=== PATIENT | female | born 1940 | race Caucasian/White ===

== ENCOUNTER 2016-09-26 14:15 | Inpatient (IN) | payer MEDICARE ==
[~2016-09-26] VITALS: Ht 154.9 cm; Wt 73.1 kg
--- NOTE | ~2016-09-26 | HEMODYNAMI ---
PATIENT:HENRY BARRERA MEDICAL RECORD: [id number] : 44 [id number] ADMISSION DATE: 09/26/16 Generatedon:09/27/201622:06 Patient name: HENRY BARRERA Patient #: [id number] SSN: : 1940 Date of study: 09/27/2016 Page: Of Hemodynamic Procedure Report Patient Data Patient Demographics Procedure consent was obtained First Name: HENRY Gender: Female Last Name: BRUCE : 1940 Middle Initial: R Age: 76 year(s) Patient #: [id number] Race: Unknown Additional ID: [id number] Contact details Address: [address] [place] [address] [place] State: [place] City: [place] Zip code: [address] Past Medical History Allergies Allergen Reaction Date Comments Reported Penicillins 09/27/2016 Other allergy 09/27/2016 Oxycodone Penicillins 09/27/2016 Sulfa drugs 09/27/2016 Admission Admission Data Admission Date: 09/26/2016 Admission Time: 16:27 Admit Source: Emergency department Room #: D.2306 Weight (lbs.): 133 Weight (kg.): 60.33 Lab Results Lab Result Date: 09/27/2016 Lab Result Time: 0:00 Biochemistry Name Units Result Min Max Creatinine mg/dl 0.6 --(*---)-- 0.6 1.3 CBC Name Units Result Min Max Hemoglobin g/dl 13.5 --(*---)-- 13.5 17.5 Procedure Procedure Types Cath Procedure Peripheral Cath Diagnostic Procedure Cath Peripheral Abd/Extremity Visceral/Mesenteric Mesenteric Arteriogram (Abd Artery) Procedure Description Procedure Date Procedure Date: 09/27/2016 Procedure Start Time: 21:03 Procedure Staff Name Function Evens Montero MD Performing Physician Julio Cesar Monk RT Scrub Sheeba Cazares RN Nurse Ameena Ponce RT Roving Tester Laboratory Ameena Ponce RT Monitor Procedure Data Cath Procedure Fluoroscopy Diagnostic fluoroscopy Total fluoroscopy Time: 8.7 time: 8.7 min min Diagnostic fluoroscopy Total fluoroscopy dose: dose: 2936 mGy 2936 mGy Contrast Material Contrast Material Type Amount (ml) Isovue 300 95 Entry Location Entry Primary Successful Side Size Upsize Upsize Entry Closure Succes sful Closure Location (Fr) 1 (Fr) 2 (Fr) Remarks Device Remarks Femoral Right 5 Fr artery Diagnostic catheters Device Type Used For End Catheter Placement Angiodynamics SOS OMNI 2 NON B 5FR 65CM catheter Procedure Medications Medication Administration Route Dosage Versed I.V. 0.5 mg Versed I.V. 0.5 mg Versed I.V. 1 mg Hemodynamics Rest HGB: 13.5 (g/dl) Heart Rate: 75 (bpm) Snapshots Pre Cath Intra NCS Post Cath Vital Signs Time Heart Resp SPO2 NIBP (mmHg) Rhythm Pain Sedation Rate (ipm) (%) Status Level (bpm) 20:46:45 57 16 Measuring SB 0 (11) 6(A) , No pain 20:47:06 69 16 97 161/99(122) NSR 0 (11) 6(A) , No pain 20:52:05 62 16 100 161/103(133) NSR 0 (11) 6(A) , No pain 20:56:15 62 16 100 158/108(131) NSR 0 (11) 6(A) , No pain 21:00:29 43 16 100 165/89(132) SB 0 (11) 6(A) , No pain 21:04:49 68 16 100 161/91(123) NSR 0 (11) 6(A) , No pain 21:09:05 61 16 100 153/117(129) NSR 0 (11) 6(A) , No pain 21:12:40 47 16 100 157/94(134) SB 0 (11) 6(A) , No pain 21:17:39 58 16 100 Measuring SB 0 (11) 6(A) , No pain 21:18:03 71 16 100 133/100(112) NSR 0 (11) 6(A) , No pain 21:23:03 60 16 100 Measuring NSR 0 (11) 6(A) , No pain 21:23:29 49 16 100 152/67(123) SB 0 (11) 6(A) , No pain 21:27:51 55 16 100 153/68(117) SB 0 (11) 6(A) , No pain 21:32:05 61 16 100 158/89(125) NSR 0 (11) 6(A) , No pain 21:36:31 58 16 100 145/59(124) SB 0 (11) 6(A) , No pain 21:40:40 58 16 100 150/101(124) SB 0 (11) 6(A) , No pain 21:44:55 63 16 100 147/80(129) NSR 0 (11) 6(A) , No pain 21:49:14 61 16 100 144/71(123) NSR 0 (11) 6(A) , No pain 21:53:28 67 16 100 143/67(123) NSR 0 (11) 6(A) , No pain 21:57:37 50 18 100 149/89(121) SB 0 (11) 6(A) , No pain 22:01:49 57 16 100 156/96(130) SB 0 (11) 6(A) , No pain 22:06:03 46 16 100 165/93(135) SB 0 (11) 6(A) , No pain Medications Time Medication Route Dose Verified Delivered Reason Notes Effectivene ss by by 21:07:03 Versed I.V. 0.5 Sheeba Sheeba for mg Lay RN Lay RN sedation 21:41:31 Versed I.V. 0.5 Sheeba Sheeba for mg Lay RN Lay RN sedation 22:02:41 Versed I.V. 1 mg Sheeba Sheeba for Lay RN Lay RN sedation Procedure Log Time Note 20:15:52 Patient Weight : 133 lbs 20:16:30 Use device set IR Diagnostic 20:16:31 Sterile Angiographic Pack opened to sterile field. 20:16:32 Bag Decanter opened to sterile field. 20:16:33 Acist Manifold opened to sterile field. 20:16:34 Acist Hand Control opened to sterile field. 20:16:35 Acist Syringe opened to sterile field. 20:17:45 Micropuncture VSI 4FR kit opened to sterile field. 20:17:46 St Gamal 5FR Sheath opened to sterile field. 20:17:47 Cook DOC .035 guide wire opened to sterile field. 20:17:56 TUBING, CONTRAST INJCTKatya HERRERA PRES opened to sterile field. 20:18:31 - 20:18:42 Julio Cesar Monk RT (R) (CV) sent for patient. Start room use. 20:43:55 Time tracking: Call back 20:44:03 Plan of Care:Hemodynamics will remain stable., Cardiac rhythm will remain stable., Comfort level will be maintained., Respiratory function will remain adequate., Patient/ family verbilizes understanding of procedure., Procedure tolerated without complication., Recovers from procedure without complications.. 20:44:12 Patient received from ICU to IR On ventilator. Tansferred to table in Supine position. 20:44:45 unable to answer assesment questions due to patient on vent. 20:44:48 Correct patient and procedure confirmed by team. 20:44:53 Signed procedure consent form obtained from guardian. 20:44:57 Vital chart was started 20:44:58 ECG and BP/O2 sat monitors applied to patient. 20:44:59 Baseline sample Acquired. 20:45:01 Full Disclosure recording started 20:45:02 - 20:45:09 H&P Date Dictated: 09/27/2016 Within 30 days and on chart.. 20:45:23 Family in waiting room. 20:45:29 Patient NPO since Breakfast. 20:45:40 Patient allergic to Penicillins 20:45:48 Patient allergic to Sulfa drugs 20:46:12 Is the patient allergic to Iodine/contrast media? No. 20:46:22 Is patient on blood thinner?Yes 20:46:26 - 20:55:09 Pre procedure: right dorsailis pedis pulse Doppler 20:55:22 Pre procedure: right posterior tibial pulse Doppler 20:55:32 Right groin area was prepped with chlora-prep and draped in sterile fashion 20:55:34 Alarms reviewed by Leanna Clarke 20:55:35 Sharps counted by scrub and verified by Giovanni 20:55:36 - 21:01:39 Physician arrived 21:01:42 --------ALL STOP TIME OUT------ ::42 Final Timeout: patient, procedure, and site verified with staff and physician. All members of the team are in agreement. 21:01:45 Right groin site verified by team. 21:02:19 Sedation plan: IV Moderate Sedation Propofol 21:02:36 Procedure started. 21:03:51 Local anesthetic to right femoral artery with Lidocaine 1% by Evens Montero MD.INITIAL ACCESS ONLY 21:07:03 Versed 0.5 mg I.V. was given by Sheeba Cazares RN; for sedation; 21:08:15 A 5 Fr sheath was inserted into the Right Femoral artery 21:08:27 A AngiodynamBombBomb SOS OMNI 2 NON B 5FR 65CM catheter was advanced over e wire and used for . 21:15:34 Edgar Sci Amplatz Super Stiff 75CM guide wire opened to sterile field. 21:15:35 DILATOR, VESSEL 5/20 opened to sterile field. 21:16:58 [employer] Software DOC .035 guide wire opened to sterile field. 21:17:35 Mar[employer] ANGLE 180L glide wire opened to sterile field. 21:22:40 [place] Sci TRANSEND STEERABLE guide wire opened to sterile field. 21:22:41 [employer] TORQUE DEVICE PLASTIC .038 opened to sterile field. 21:22:56 Angiography was performed. 21:24:45 RENEGADE STAIGHT 150CM microcatheter opened to sterile field. 21:24:45 Copilot Bleedback Control Valve opened to sterile field. 21:30:39 STOPCOCK 3-WAY LARGE BORE opened to sterile field. 21:31:41 EMBO PARTICLES [id number] MICRON opened to sterile field. 21:36:37 Concerto 2mm x 4cm coil opened to sterile field. 21:37:14 IDL Instant Loading Inspector opened to sterile field. 21:38:34 Concerto 2mm x 4cm coil opened to sterile field. 21:40:11 Concerto 2mm x 4cm coil opened to sterile field. 21:41:31 Versed 0.5 mg I.V. was given by Sheeba Cazares RN; for sedation; 21:53:31 ANGIOSEAL-[facility] PLUS 6 FR opened to sterile field. 21:56:21 Procedure ended.(Physican Out) 21:57:03 Fluoroscopy time 08.70 minutes. 21:57:19 Fluoroscopy dose: 2936 mGy 21:57:19 Flurop Dose total: 2936 21:57:26 Contrast amount:Isovue 300 95ml. 21:57:28 Sharps counted by scrub and verified by R.N. 22:02:41 Versed 1 mg I.V. was given by Sheeba Cazares RN; for sedation; 22:05:33 Procedure and supply charges have been captured, reviewed, submitted an d are correct. 22:06:18 Vital chart was stopped Device Usage Item Name Manufacture Quantity Catalog Hospital Part Current Min imal Lot# / Number Charge Number Stock Stock Serial# Code Sterile Cardinal 1 [id number] 5 Angiographic Health Pack Bag Decanter Microtek 1 2001S [id number] 53012 718922 5 Medical Inc. Acist Acist Medical 1 69865 619761 900868 510122 5 Manifold Systems Inc Acist Hand Acist Medical 1 53827 976336 176441 764810 5 Control Systems Inc Acist Syringe Acist Medical 1 84081 151481 844664 824058 20 Systems Inc Micropuncture VSI VASCULAR 1 7266V 896641 083391 [address] kit [address] Gamal [address] St Gamal 1 489918 365231 960020 5 [id number] Sheath Cook DOC .035 Cook Medical 2 E21644 350369 276458 5 [id number] guide wire [id number] TUBING, [facility] 1 [id number] 713725 505673 974608 5 CONTRAST INJCTN HI PRES Angiodynamics Angiodynamics 1 [id number] 067062 84097 427621 5 SOS OMNI 2 NON B 5FR 65CM catheter Edgar Sci Edgar 1 [id number] 384347 709875 269803 5 Amplatz Super Scientific Stiff 75CM guide wire DILATOR, [employer] 1 T33605 936996 40482 955118 5 [id number] VESSEL 20 Terumo ANGLE Terumo 1 CA6694 704119 359283 254205 5 180L glide wire Edgar Sci Edgar 1 [id number] 239483 976445 5 TRANSEND Scientific STEERABLE guide wire Terumo TORQUE Edgar 1 TD01 729525 772927 592932 5 DEVICE Scientific PLASTIC .038 RENEGADE Edgar 1 [id number] 131266 891774 5 STAIGHT 150CM Scientific microcatheter Copilot Mckeon 1 9077822 099889 648703 022420 5 Bleedback Vascular Control Valve STOPCOCK [facility] 1 Q88188 539653 8613 438841 5 3-WAY LARGE BORE EMBO Edgar 1 [id number] 779021 573773 5 PARTICLES Scientific [phone] MICRON Concerto 2mm Medtronic 3 NV-2-4HELIX 718855 382864 42919 5 x 4cm coil IDL Instant B. Zarco 1 ID-1 [id number] [id number] 333911 5 Loading Inspector ANGIOSEAL-[facility] Gamal 1 953768 457092 124755 5 7774014 PLUS 6 FR Signature Audit [place] Stage Time Signature Unsigned Intra-Procedure 09/27/2016 Ameena Ponce 10:06:15 PM RT(R) Signatures Monitor : Ameena Ponce RT Signature : Date : Time : [facility] [address] [place] [address]
--- NOTE | ~2016-09-26 | HEMODYNAMI ---
PATIENT:HENRY BARRERA MEDICAL RECORD: [id number] : 44 LOCATION[id number] ADMISSION DATE: 09/26/16 Generatedon:09/27/201611:30 Patient name: HENRY BARRERA Patient #: [id number] SSN: : 1940 Date of study: 09/27/2016 Page: Of Hemodynamic Procedure Report Patient Data Patient Demographics Procedure consent was obtained First Name: HENRY Gender: Female Last Name: BRUCE : 1940 [facility] Initial: R Age: 76 year(s) Patient #: [id number] Race: Unknown Additional ID: [id number] Contact details [address]: [address] [place] [address] [place] State: [place] City: [place] Zip code: [address] Past Medical History Allergies Allergen Reaction Date Comments Reported Penicillins 09/27/2016 Other allergy 09/27/2016 Oxycodone Admission Admission Data Admission Date: 09/26/2016 Admission Time: 16:27 Admit Source: Emergency department Room #: D.2119 Lab Results Lab Result Date: 09/27/2016 Lab Result Time: 0:00 Biochemistry Name Units Result Min Max Creatinine mg/dl 0.6 --(*---)-- 0.6 1.3 CBC Name Units Result Min Max Hemoglobin g/dl 13.5 --(*---)-- 13.5 17.5 Procedure Procedure Types Cath Procedure Diagnostic Procedure LHC LHC w/Coronaries PCI Procedure Coronary Stent Initial Miscellaneous Procedures Moderate Sedation up to 30 minutes Procedure Description Procedure Date Procedure Date: 09/27/2016 Procedure Start Time: 10:57 Procedure Staff Name Function Phan Burleson MD Performing Physician Parvez Scott RT Scrub Markie Antonio RN Nurse Rody De Jesus RT Monitor Procedure Data Cath Procedure Fluoroscopy Diagnostic fluoroscopy Total fluoroscopy Time: 6 time: 6 min min Diagnostic fluoroscopy Total fluoroscopy dose: 538 dose: 538 mGy mGy Contrast Material Contrast Material Type Amount (ml) Isovue 300 107 Entry Location Entry Primary Successful Side Size Upsize Upsize Entry Closure Hill ccessful Closure Location (Fr) 1 (Fr) 2 (Fr) Remarks Device Remarks Radial Right 6 Fr Mechanical artery Short Compression Femoral Right 5 Fr 6 Fr 7 Fr Mechanical artery Short Short Compression Estimated blood loss: 10 ml Diagnostic catheters Device Type Used For End Catheter Placement Terumo 5Fr [place] 110cm LV Angiography catheter Cordis 5Fr Pigtail LV Angiography Catheter (MP) Cordis 5Fr JL 4.0 Left Coronary Catheter (MP) Angiography Cordis 5Fr 3DRC Catheter Right Coronary (MP) Angiography Procedure Complications No complications Procedure Medications Medication Administration Route Dosage Oxygen NC 2 l/min Heparin Flush Bag added to field 2 bags (1000units/500ml NS) 0.9% NaCl I.V. 100 ml/hr Radial Cocktail added to field 1 syringe (Verapomil 2mg/Nitro 400mcg/Heparin 1500units) Demerol I.V. 25 mg Zofran I.V. 4 mg Radial Cocktail I.A. 1 syringe (Verapomil 2mg/Nitro 400mcg/Heparin 1500units) Heparin Bolus I.V. 4000 units Hemodynamics Rest HGB: 13.5 (g/dl) Heart Rate: 67 (bpm) Snapshots Pre Cath Intra NCS Post Cath Vital Signs Time Heart Resp SPO2 etCO2 UU6cisl NIBP (mmHg) Rhythm Pain Sedatio n Rate (ipm) (%) (mmHg) (mmHg) Status Level (bpm) 10:49:16 67 18 99 0 0 167/105(128) NSR 0 (11) 10(A) , No pain 10:53:34 88 18 98 0 0 166/104(135) NSR 0 (11) 10(A) , No pain 10:58:01 60 18 97 0 0 146/66(109) NSR 0 (11) 10(A) , No pain 11:02:21 67 19 94 0 0 132/67(108) NSR 0 (11) 9(A) , No pain 11:06:31 64 18 94 0 0 137/81(115) NSR 0 (11) 9(A) , No pain 11:11:30 60 18 97 0 0 Measuring NSR 0 (11) 9(A) , No pain 11:11:38 65 17 96 0 0 150/68(126) NSR 0 (11) 9(A) , No pain 11:15:54 63 18 97 0 0 153/80(121) NSR 0 (11) 9(A) , No pain 11:20:16 59 15 97 0 0 144/65(117) NSR 0 (11) 9(A) , No pain 11:24:34 66 10 97 0 0 143/67(121) NSR 0 (11) 9(A) , No pain 11:28:52 56 10 96 0 0 160/70(129) NSR 0 (11) 9(A) , No pain Medications Time Medication Route Dose Verified Delivered Reason Note s Effectiveness by by 10:45:44 Oxygen NC 2 l/min Markie Aden Per physician Paco Antonio RN RN 10:45:53 Heparin Flush added 2 bags Markie Aden used for Bag to Paco Antonio RN procedure (1000units/500ml field RN NS) 10:46:04 0.9% NaCl I.V. 100 Markie Aden Per physician ml/hr Paco Antonio RN RN 10:46:15 Radial Cocktail added 1 Markie Aden used for (Verapomil to syringe Paco Antonio RN procedure 2mg/Nitro field RN 400mcg/Heparin 1500units) 10:56:25 Demerol I.V. 25 mg Markie Aden for sedation Paco Antonio RN RN 10:56:37 Zofran I.V. 4 mg Markie Aden Per physician Paco Antonio RN RN 10:56:46 Radial Cocktail I.A. 1 Markie Lamrey for (Verapomil syringe Paco Burleson MD vasodilation 2mg/Nitro RN 400mcg/Heparin 1500units) 11:06:29 Heparin Bolus I.V. 4000 Markie Aden for units Paco Antonio RN anticoagulation corridor redevelopment manager Log Time Note 10:26:10 Diagnostic Cath Status : Elective 10:26:25 Markie Antonio RN sent for patient. Start room use. 10:26:26 Time tracking: Call back 10:26:37 Plan of Care:Hemodynamics will remain stable., Cardiac rhythm will remain stable., Comfort level will be maintained., Respiratory function will remain adequate., Patient/ family verbilizes understanding of procedure., Procedure tolerated without complication., Recovers from procedure without complications.. 10:27:59 Lab Result : Hemoglobin 13.5 g/dl 10::59 Lab Result : Creatinine 0.6 mg/dl 10:28:12 Admit Source: Emergency department 10:29:56 H&P Date Dictated: 09/26/2016 ER History on chart.. 10:33:42 Patient received from PCU to CCL 1 Alert and oriented. Tansferred to table in Supine position. 10:33:44 Warm blankets applied, and regina hugger turned on for patient comfort. 10:33:44 Correct patient and procedure confirmed by team. 10:33:45 Signed procedure consent form obtained from patient. 10:33:46 ECG and BP/O2 sat monitors applied to patient. 10:33:47 Full Disclosure recording started 10:44:27 Vital chart was started 10:45:44 Oxygen 2 l/min NC was given by Makrie Antonio RN; Per physician; 10:45:53 Heparin Flush Bag (1000units/500ml NS) 2 bags added to field was given by Markie Antonio RN; used for procedure; 10:46:04 0.9% NaCl 100 ml/hr I.V. was given by Markie Antonio RN; Per physician; 10:46:15 Radial Cocktail (Verapomil 2mg/Nitro 400mcg/Heparin 1500units) 1 syringe added to field was given by Markie Antonio RN; used for procedure; 10:46:40 Rhythm: trigeminy 10:46:44 Pre-procedure instructions explained to patient. 10:46:44 Pre-op teaching completed and patient verbalized understanding. 10:46:46 Family in patients room. 10:46:53 Patient NPO since Midnight. 10:47:02 Patient allergic to Penicillins 10:47:22 Patient allergic to Other allergyOxycodone 10:47:24 Is the patient allergic to Iodine/contrast media? No. 10:47:27 Is patient on blood thinner?Yes 10:47:29 ACC The patient was administered the following blood thiners within the last 24 hours: ACCPlavix 10:47:40 Patient diabetic? No. 10:47:44 Previous problem with sedation/anesthesia? No ? 10:47:46 Snore? Yes 10:47:47 Sleep apnea? No 10:47:48 Deviated septum? No 10:47:48 Opens mouth fully? Yes 10:47:49 Sticks out tongue? Yes 10:47:52 Airway obstruction? No ? 10:47:56 Dentures? Yes In 10:47:59 Pre procedure: right dorsailis pedis pulse 2+ Normal; easily identifiable; not easily obliterated 10:48:00 Modified Burton's test Ulnar < 7 seconds 10:48:02 Patient pain scale 0/10 ?. 10:48:07 Vital chart was stopped 10:48:08 Vital chart was started 10:48:09 IV patent on arrival in right antecubital with 0.9% NaCl at [facility]. 10:48:12 Lab results completed and on chart. 10:48:17 Right Radial & Right Groin area was prepped with chlora-prep and draped in sterile fashion 10:48:18 Alarms reviewed by R. N. 10:48:18 Sharps counted by scrub and verified by R.N. 10:48:20 Use device set Radial Dx 10:48:21 Acist Syringe opened to sterile field. 10:48:21 Medline Cath Pack opened to sterile field. 10:48:22 Bag Decanter opened to sterile field. 10:48:22 Terumo 6Fr Slender Glidesheath opened to sterile field. 10:48:22 St Gamal 260cm J .035 wire opened to sterile field. 10:48:23 Acist Hand Control opened to sterile field. 10:48:23 Acist Manifold opened to sterile field. 10:48:24 Tegaderm 4 x 4 opened to sterile field. 10:51:20 Final Timeout: patient, procedure, and site verified with staff and physician. All members of the team are in agreement. 10:51:23 Right Radial site verified by team. 10:51:27 Physical assessment completed. ASA score P 2 - A patient with mild systemic disease as per Phan Burleson MD. 10:51:30 Sedation plan: IV Moderate Sedation Versed, Fentanyl 10:52:09 Baseline sample Acquired. 10:56:25 Demerol 25 mg I.V. was given by Markie Antonio RN; for sedation; 10:56:37 Zofran 4 mg I.V. was given by Markie Antonio RN; Per physician; 10:56:46 Radial Cocktail (Verapomil 2mg/Nitro 400mcg/Heparin 1500units) 1 syringe I.A. was given by Phan Burleson MD; for vasodilation; 10:57:06 Zero performed for pressure channel P1 10:57:15 Zero performed for pressure channel P1 10:57:33 Local anesthetic to right radial artery with Lidocaine 2% by Phan Burleson MD.INITIAL ACCESS ONLY 10:57:40 A 6 Fr Short sheath was inserted into the Right Radial artery 10:57:58 A Terumo 5Fr [place] 110cm catheter was advanced over the wire and used for LV Angiography.removed, unable to advance 10:58:27 Terumo ANGLE 260cm glide wire opened to sterile field. 10:58:54 Ang [place] wire advanced. 11:00:13 Wire removed. 11:00:51 Use device set Multipack Set 11:00:57 Diagnostic Infinity 5Fr Multipack catheter opened to sterile field. 11:01:08 Terumo 5Fr [place] Sheath opened to sterile field. 11:01:15 Local anesthetic to right femoral artery with Lidocaine 2% by Phan Burleson MD.ADDITIONAL ACCESS 11:02:00 A 5 Fr sheath was inserted into the Right Femoral artery 11:02:09 A Cordis 5Fr Pigtail Catheter (MP) was advanced over the wire and used for LV Angiography. 11:02:16 LV gram done using CARDENAS 11:02:25 Injector settings: Ml/sec: 10, Volume: 20, 11:02:33 EF : 50 % 11:02:43 Catheter removed. 11:02:48 A Cordis 5Fr JL 4.0 Catheter (MP) was advanced over the wire and used for Left Coronary Angiography. 11:03:47 Mckeon Whisper J 300cm 0.014 guide wire opened to sterile field. 11:03:48 Terumo 6Fr [place] Sheath opened to sterile field. 11:03:48 [email or web address] Inflation Kit opened to sterile field. 11:03:53 Catheter removed. 11:04:12 A Cordis 5Fr 3DRC Catheter (MP) was advanced over the wire and used for Right Coronary Angiography. 11:05:09 Catheter removed. 11:05:18 Sheath upsized to a 6 Fr Short. 11:05:57 6 Fr AR 2.0 guide catheter was inserted over the wire 11:06:09 Medtronic Launcher 6Fr [place] 2.0 guide catheter opened to sterile field. 11:06:29 Heparin Bolus 4000 units I.V. was given by Markie Antnoio RN; for anticoagulation; 11:07:22 Whisper wire advanced. 11:08:45 Wire removed. unable to get back-up support 11:08:50 Guide Catheter removed. unable to get back-up support 11:09:02 The Medtronic Integrity 2.5 X 22 stent was advanced then removed because of failure to cross lesion 11:09:11 Sheath upsized to a 7 Fr Short. 11:10:01 Terumo 7Fr [place] Sheath opened to sterile field. 11:10:10 [place] Sci Choice PT Extra Support J 300cm .014 gu opened to sterile field. 11:10:10 Medtronic Launcher 7Fr [place] 2.0 SH guide catheter opened to sterile field. 11:10:40 7 Fr AR 2.0 SH guide catheter was inserted over the wire 11:11:12 Choice PT ES wire advanced. 11:11:26 Inflation number: 1 A [place] Sci [place] 2.5 X 20 balloon was prepped and advanced across the Mid RCA, then inflated to 13 PAT for 0:11 (min:sec). 11:11:42 Inflation number: 2 The [place] Sci [place] 2.5 X 20 balloon was reinflated across the Mid RCA, to 17 PAT for 0:10 (min:sec). 11:11:49 Balloon removed over the wire. 11:13:29 Inflation Number: 3 A Medtronic Integrity 2.5 X 22 stent was prepped and advanced across the Mid RCA. The stent was deployed at 17 PAT for 0:05 (min:sec). 11:13:58 Stent catheter was removed intact over wire. 11:13:59 Wire removed. 11:13:59 Guide catheter removed. 11:14:07 Sheath removed intact; hemostasis achieved with Mechanical Compression to the Right Femoral artery. 11:14:17 Cordis 7Fr Exoseal opened to sterile field. 11:14:20 Procedure ended.(Physican Out) 11:15:46 Terumo TR Band Standard opened to sterile field. 11:15:54 Fluoroscopy time 06.00 minutes. 11:16:00 Fluoroscopy dose: 538 mGy 11:16:00 Flurop Dose total: 538 11:16:08 Contrast amount:Isovue 300 107ml. 11:16:09 Sharps counted by scrub and verified by R.N. 11:16:13 TR band inflated with 12cc of air. 11:16:14 Insertion/operative site no bleeding no hematoma. 11:16:26 Post-op/insertion site Right Femoral artery dressed using a 4 x 4 and Tegaderm. 11:16:32 Post right femoral artery:stable, clean and dry 11:16:33 Post Procedure Pulses reassessed and unchanged 11:16:36 Post-procedure physical assessment completed. ASA score P 2 - A patient with mild systemic disease as per Phan Burleson MD. 11:16:38 Post procedure rhythm: unchanged. 11:16:40 Estimated blood loss: 10 ml 11:16:43 Post procedure instruction explained to patient.Patient verbalizes understanding. 11:16:43 Patient needs reinforcement of post procedure teaching. 11:16:57 Procedure type changed to Cath procedure, Diagnostic procedure, LHC, LHC w/Coronaries, PCI procedure, Coronary Stent Initial, Miscellaneous Procedures, Moderate Sedation up to 30 minutes 11:17:02 Procedure Complication : No complications 11:17:04 See physician's report for complete and final results. 11:18:22 IV Extension Set opened to sterile field. 11:22:17 Procedure and supply charges have been captured, reviewed, submitted and are correct. 11:22:33 Report given to PCU. 11:29:18 St Gamal Femstop Arch Gold opened to sterile field. 11:29:31 Post right femoral artery:hematoma 11:29:36 Femstop placed over the right femoral artery at 160 mmHg. Hemostasis achieved. 11:30:02 Sheath removed intact; hemostasis achieved with Mechanical Compression to the Right Radial artery. 11:30:07 Patient transfered to PCU with Bed. 11:30:14 End room use (Document Last) 11:30:27 Vital chart was stopped Intervention Summary Intervention Notes Time ActionType Lesion and Equipment Action# Pressure Duration Attributes Used 11:09:02 Discard Medtronic Stent Integrity 2.5 X 22 stent 11:11:26 Inflate Mid RCA [place] 1 13 00:11 balloon Sci [place] 2.5 X 20 balloon 11:11:42 Reinflate Mid RCA [place] 2 17 00:11 balloon Sci [place] 2.5 X 20 balloon 11:13:29 Place stent Mid RCA Medtronic 3 17 00:05 Integrity 2.5 X 22 stent Device Usage Item Name Manufacture Quantity Catalog Number Hospital Part Current Mini mal Lot# / Charge Number Stock Stock Serial# Code Acist Acist 1 46199 [id number] 996704 201816 20 Syringe Medical Systems Inc Medline Cardinal 1 [id number] 408738 67715 650298 5 Cath Pack Health Bag Microtek 1 2002S 088073 77752 285959 5 MessageGate Inc. Terumo 6Fr Terumo 1 [id number] 505547 852484 709463 [address] Gam[address] St Gamal 1 534113 347274 930394 949468 30 260cm J .035 wire Acist Hand Acist 1 75293 919578 485863 864198 5 Control Medical Systems Inc Acist Acist 1 64357 853516 845503 200372 5 Mandae Technologies Medical Systems Inc Tegaderm 4 3M 1 1626W 295124 601220 878308 5 x 4 Terumo 5Fr Terumo 1 405013 170728 547862 967497 5 [place] 110cm catheter Terumo Terumo 1 [id number] 905310 564591 877806 5 ANGLE 260cm glide wire Diagnostic Cardinal 1 [id number] 135064 36838 706319 30 Infinity Health 5Fr Multipack catheter Terumo 5Fr Terumo 1 [id number] 533165 713193 820096 40 [place] Sheath Cordis 5Fr Cardinal 1 758591 5 Pigtail Health Catheter (MP) Cordis 5Fr Cardinal 1 880648 5 JL 4.0 Health Catheter (MP) Mckeon Mckeon 1 [id number] 229232 268097 005377 5 Whisper J Vascular 300cm 0.014 guide wire Terumo 6Fr Terumo 1 [id number] 477098 354058 527409 40 [place] Sheath Merit Merit 1 [id number] 649185 155681 392169 15 ArchitexaohApprion Medical Inflation Kit Cordis 5Fr Cardinal 1 897460 5 3DRC Health Catheter (MP) Medtronic Medtronic 1 [id number] 378444 86299 491862 1 Launcher 6Fr [place] 2.0 guide catheter Medtronic Medtronic 1 [id number] 271194 627860 9 [id number] Integrity 2.5 X 22 stent Terumo 7Fr Terumo 1 [id number] 461562 197897 947612 5 [place] Sheath [place] Sci [place] 1 [id number] 053314 20190118 176285 5 Choice PT Scientific Extra Support J 300cm .014 gu Medtronic Medtronic 1 [id number] 132900 804797 330794 0 Launcher 7Fr [place] 2.0 SH guide catheter [place] Sci [place] 1 [id number] 719483 893217 357965 1 [id number] [place] Scientific 2.5 X 20 balloon Cordis 7Fr Cardinal 1 EX700 769035 378609 515311 5 Exoseal Health Terumo TR Terumo 1 [id number] 969542 268452 864222 40 Band Standard IV Hospira 1 25638-17 954130 44278 404[address] St Gamal 1 Q58478 642686 199728 684127 5 Femstop Arch Gold Signature Audit [place] Stage Time Signature Unsigned Intra-Procedure 09/27/2016 Rody 11:30:24 AM Counts RT(R) Signatures Monitor : Rody Signature : Counts RT Date : Time : [facility] [address] [place] [address]
[2016-09-26 15:12] LABS: BASOPHILS 0.2 % (0.0-2.0); EOSINOPHILS 1.3 % (0-7); HEMATOCRIT 40.8 % (36.0-48.0); HEMOGLOBIN 13.5 g/dL (12-16); IMMATURE GRANULOCYTES 0.2 % (0-5); LYMPHOCYTES 46.6 % (15-50); MCHC 33.1 g/dL (31.0-37.0); MCV 93.8 fL (80.0-100.0); MEAN PLATELET VOLUME 11.6 fL (7.4-10.4); MONOCYTES 9.8 % (2-11); NEUTROPHILS 41.9 % (40-80); PLATELET COUNT 135 10x3/uL (130-400); RBC 4.35 10x6/uL (4.00-5.40); RDW 13.4 % (11.5-14.5); WBC 5.3 10x3/uL (4.8-10.8)
[2016-09-26 15:21] LABS: ALBUMIN 3.5 g/dL (3.4-5.0); ALKALINE PHOSPHATASE 84 U/L (46-116); ALT (SGPT) 18 U/L (10-68); CALC OSMOLALITY 281 mosm/kg (275-300); CALCIUM 9.1 mg/dL (8.5-10.1); CARBON DIOXIDE 29.1 mmol/L (21.0-32.0); CHLORIDE - SERUM 104 mmol/L (98-107); CREATININE - SERUM 0.6 mg/dL (0.6-1.3); GLUCOSE 92 mg/dL (74-106); POTASSIUM - SERUM 4.2 mmol/L (3.5-5.1); PROTEIN - SERUM 6.7 g/dL (6.4-8.2); SODIUM 142 mmol/L (136-145); UREA NITROGEN 10 mg/dL (7-18); eGFR NON AFRICAN AMERICAN > 90 mL/min (90-120)
[2016-09-26 15:30] LABS: CHOL - HDL RATIO 2.5 ratio (2.3-4.1); CHOLESTEROL, TOTAL 116 mg/dL (0-200); CKMB 1.2 U/L (0.0-3.6); CREATINE KINASE 72 UL (21-215); HDL CHOLESTEROL 47 mg/dL (32-96); LDL CHOLESTEROL 34 mg/dL (0-100); LDL-HDL RATIO 0.7 ratio (1.5-3.5); TRIGLYCERIDE 175 mg/dL (30-200); TROPONIN-I 0.041 ng/mL (0.000-0.060)
[2016-09-26 16:36] LABS: APPEARANCE CLEAR (CLEAR); BILIRUBIN NEGATIVE (NEGATIVE); COLOR YELLOW (YELLOW); GLUCOSE NEGATIVE (NEGATIVE); KETONE NEGATIVE (NEGATIVE); LEUKOCYTE ESTERASE NEGATIVE (NEGATIVE); NITRITE NEGATIVE (NEGATIVE); PROTEIN NEGATIVE (NEGATIVE); UROBILINOGEN NORMAL (NORMAL)
--- NOTE | 2016-09-26 18:35 | NUR ---
TRANSFER FROM ER BY W/C. SIRENAINTED TO ROOM. CALL LIGHT IN REACH. WILL CONT. PLAN OF CARE.
--- NOTE | 2016-09-26 19:00 | NUR ---
RECEIVED REPORT AND ASSUMED PT CARE FROM DAY SHIFT NURSE @ THIS TIME.
[2016-09-26 20:00] VITALS: BP 159/65
[2016-09-26] MEDS ORDERED: LIPITOR40 MG PO (20:04)
[2016-09-26] MEDS ORDERED: VOLTAREN100 GM TOPICAL (20:04)
[2016-09-26] MEDS ORDERED: COZAAR50 MG PO (20:04)
[2016-09-26] MEDS ORDERED: BETAPACE 80 MG80 MG PO (20:05)
[2016-09-26] MEDS ORDERED: PEPCID40 MG PO (20:05)
[2016-09-26] MEDS ORDERED: CARAFATE1 G PO (20:05)
[2016-09-26] MEDS ORDERED: PLAVIX75 MG PO (20:06)
[2016-09-26] MEDS ORDERED: ZOVIRAX400 MG PO (20:07)
[2016-09-26] MEDS ORDERED: BAYER CHEWABLE81 MG PO (20:26)
[2016-09-26] MEDS ORDERED: TUMS500 MG PO (20:27)
[2016-09-26] MEDS ORDERED: CYCLOBENZAPRINE10 MG PO (20:28)
[2016-09-26] MEDS ORDERED: VITAMIN D31000 UNIT PO (20:28)
[2016-09-26] MEDS ORDERED: COLACE100 MG PO (20:29)
[2016-09-26] MEDS ORDERED: OMEGA 3 FISH OI1 CAP PO (20:29)
[2016-09-26] MEDS ORDERED: NITROSTAT0.4 MG SL (20:29)
[2016-09-26] MEDS ORDERED: ULTRAM50 MG PO (20:30)
[2016-09-26 20:31] VITALS: BMI 25.3
[2016-09-27] VITALS (20 sets, daily range): BP systolic 88–163; BP diastolic 45–99
[2016-09-27 10:06] LABS: BASOPHILS 0.3 % (0.0-2.0); EOSINOPHILS 2.3 % (0-7); HEMATOCRIT 37.9 % (36.0-48.0); HEMOGLOBIN 12.5 g/dL (12-16); LYMPHOCYTES 51.3 % (15-50); MCH 31.3 pg (26.0-34.0); MCV 94.8 fL (80.0-100.0); MEAN PLATELET VOLUME 11.7 fL (7.4-10.4); MONOCYTES 11.7 % (2-11); NEUTROPHILS 34.4 % (40-80); PLATELET COUNT 126 10x3/uL (130-400); RDW 13.4 % (11.5-14.5); WBC 3.9 10x3/uL (4.8-10.8)
[2016-09-27 10:22] LABS: CALC OSMOLALITY 281 mosm/kg (275-300); CALCIUM 8.1 mg/dL (8.5-10.1); CARBON DIOXIDE 24.9 mmol/L (21.0-32.0); CHLORIDE - SERUM 107 mmol/L (98-107); CREATININE - SERUM 0.7 mg/dL (0.6-1.3); GLUCOSE 119 mg/dL (74-106); POTASSIUM - SERUM 3.7 mmol/L (3.5-5.1); SODIUM 142 mmol/L (136-145); TROPONIN-I 0.059 ng/mL (0.000-0.060); eGFR NON AFRICAN AMERICAN 87 mL/min (90-120)
--- NOTE | 2016-09-27 10:30 | NUR ---
PT TO NATIONAL RECRUITER VIA BED IN STABLE CONDITION
[2016-09-27 10:36] LABS: UREA NITROGEN 7 mg/dL (7-18)
--- NOTE | 2016-09-27 11:39 | NUR ---
RECEIVED PT BACK FROM PREPARATION SUPERVISOR FREEZING IN STABLE CONDITION TR BAND INTACT TO RT WRIST BRUISING NOTED LUST PROXIMAL TO BAND FEMSTOP INTACT TO RT GROIN NO SIGNS OF BLEEDING NOTED WILL CONTINUE TO MONITOR
--- NOTE | 2016-09-27 16:21 | NUR ---
RECEIVED NEW ORDERS AND INITIATED
[2016-09-27 16:58] LABS: BASOPHILS 0.2 % (0.0-2.0); EOSINOPHILS 1.6 % (0-7); HEMATOCRIT 33.1 % (36.0-48.0); HEMOGLOBIN 10.8 g/dL (12-16); IMMATURE GRANULOCYTES 0.2 % (0-5); LYMPHOCYTES 39.8 % (15-50); MCH 31.1 pg (26.0-34.0); MCHC 32.6 g/dL (31.0-37.0); MCV 95.4 fL (80.0-100.0); MEAN PLATELET VOLUME 11.4 fL (7.4-10.4); MONOCYTES 7.2 % (2-11); PLATELET COUNT 119 10x3/uL (130-400); RBC 3.47 10x6/uL (4.00-5.40); RDW 13.6 % (11.5-14.5); WBC 6.4 10x3/uL (4.8-10.8)
--- NOTE | 2016-09-27 17:00 | NUR ---
RAPID RESPONSE CALLED SEE RAPID RESPONSE REPORT SHEET
[2016-09-27 17:06] LABS: APTT 40.8 SECONDS (22.8-39.4); INR 1.15 (0.85-1.17); PROTIME 14.6 SECONDS (11.6-15.0)
[2016-09-27 17:12] LABS: ALBUMIN 2.4 g/dL (3.4-5.0); ALKALINE PHOSPHATASE 59 U/L (46-116); ALT (SGPT) 11 U/L (10-68); BILIRUBIN - TOTAL 0.41 mg/dL (0.2-1.3); CALC OSMOLALITY 282 mosm/kg (275-300); CALCIUM 7.9 mg/dL (8.5-10.1); CARBON DIOXIDE 26.7 mmol/L (21.0-32.0); CHLORIDE - SERUM 110 mmol/L (98-107); CREATININE - SERUM 0.5 mg/dL (0.6-1.3); GLUCOSE 139 mg/dL (74-106); PROTEIN - SERUM 5.3 g/dL (6.4-8.2); SODIUM 142 mmol/L (136-145); UREA NITROGEN 8 mg/dL (7-18); eGFR NON AFRICAN AMERICAN > 90 mL/min (90-120)
--- NOTE | 2016-09-27 18:00 | NUR ---
PT TRANSFERED VIA BED TO ICU WITH ACTIVE GI BLEED
--- NOTE | 2016-09-27 18:14 | NUR ---
RAPID RESPONSE FROM ROOM 2119, REC'D TO ROOM 2306 WITH ACUTE ACTIVE GI BLEED. SEE RAPID RESPONSE NOTE. DR. DENNIS AT BEDSIDE READYING FOR A EGD. HOOKED UP TO CM. 1818. INTUBATED BY ARNOLD CALDWELL PER DR. DENNIS'S REQUEST.
--- NOTE | 2016-09-27 19:00 | NUR ---
1900: Pt rec'd with Dr. Villa, GI Team, and Anesthesia at bedside. Procedure in progress. Pt is intubated, SR with PVCs on CM, and SBP 90's.
--- NOTE | 2016-09-27 19:30 | NUR ---
1929: ALMITA GE paged and transferred to speak with Dr. Villa. Family here and updated per Dr. Villa.
--- NOTE | 2016-09-27 19:57 | NUR ---
PATIENT ACTIVELY BLEEDING MULTIPLE CLOTS, WAS INSTRUCTED TO DRAW UP EPI IN A INJECTABLE SYRING DUE TO ACTIVE BLEED IN ESOPHAGES DID NOT INJECT BUT HAD IT READY. WAS INSTRUCTED BY MD TO CHARGE HEMMORHAGE.
--- NOTE | 2016-09-27 20:00 | NUR ---
1999: Procedure completed and IR team has been paged. Pt remains on Vent with RR14x with SPO2 98%. Pt SR with frequent PVCs seen with occasional Bigeminal rhythm 70s on CM. Palpable pulse reduced to 35 bpm. NS bolus started via left PIV. Left PIV is not working at this time. Right arm PIV flushes without difficulty. NS applied to right arm PIV. Levophed gtt started at 5 mcg/min. Diprivan gtt started at 10 mcg/kg/min. Attempted multiple IV starts to 3 RNs without success.
--- NOTE | 2016-09-27 20:30 | NUR ---
2030: GI team here. Consents reviewed with family for planned procedure including risks vs benifits. Family verblaized understanding. Assisted GI team to Specials with RT and portable vent.
--- NOTE | 2016-09-27 22:00 | NUR ---
2200: Pt returned from [facility] and placed in room 2306 without difficulty. Pt remains on Vent and sedated with Diprivan gtt. Pt has RTLSC placed with dressing intact. Levophed off at this time and NS remains at 125 cc/hr. Pt remains SR with frequent PVCs seen on CM 60's with SBP 140. Right arm assessed with GI team. Right wrist cold to touch, but radial pulse is palpable. Area extending approx 6" proximal purple in color. Warm blankets applied to area.
--- NOTE | 2016-09-27 23:00 | NUR ---
2300: Bailey placed by Salvador NUNEZ and Jodee Palmer RN under sterile technique. UA obtained. Immediate return of clear yellow UOP noted. Placed to gravity drainage.
[2016-09-27 23:43] LABS: APPEARANCE CLEAR (CLEAR); BILIRUBIN NEGATIVE (NEGATIVE); COLOR YELLOW (YELLOW); GLUCOSE NEGATIVE (NEGATIVE); KETONE SMALL mg/dL (NEGATIVE); LEUKOCYTE ESTERASE NEGATIVE (NEGATIVE); NITRITE NEGATIVE (NEGATIVE); PROTEIN NEGATIVE (NEGATIVE); UROBILINOGEN NORMAL (NORMAL)
[2016-09-28] VITALS (25 sets, daily range): BP systolic 98–145; BP diastolic 47–89
--- NOTE | 2016-09-28 05:00 | NUR ---
0500: RTLSC oozing blood. Dressing not changed at this time, but reinforced with 4x4's. No change in IVF. Pt is SR at this time with HR 70 bpm. SBP remains >100 mmHG. Oral care done at this time. Pt continues with small amount of clear with red streaks of sputum being sx'd from oral cavity.
[2016-09-28 05:14] LABS: BASOPHILS 0.2 % (0.0-2.0); EOSINOPHILS 0.6 % (0-7); HEMATOCRIT 27.2 % (36.0-48.0); IMMATURE GRANULOCYTES 0.2 % (0-5); LYMPHOCYTES 29.2 % (15-50); MCH 31.3 pg (26.0-34.0); MCHC 33.1 g/dL (31.0-37.0); MCV 94.4 fL (80.0-100.0); MEAN PLATELET VOLUME 11.5 fL (7.4-10.4); MONOCYTES 5.6 % (2-11); NEUTROPHILS 64.2 % (40-80); PLATELET COUNT 104 10x3/uL (130-400); RBC 2.88 10x6/uL (4.00-5.40); RDW 13.5 % (11.5-14.5)
[2016-09-28 05:19] LABS: WBC 4.7 10x3/uL (4.8-10.8)
[2016-09-28 05:28] LABS: ALBUMIN 2.2 g/dL (3.4-5.0); ALKALINE PHOSPHATASE 48 U/L (46-116); ALT (SGPT) 10 U/L (10-68); BILIRUBIN - TOTAL 0.46 mg/dL (0.2-1.3); CALCIUM 7.5 mg/dL (8.5-10.1); CARBON DIOXIDE 22.6 mmol/L (21.0-32.0); CHLORIDE - SERUM 108 mmol/L (98-107); CREATININE - SERUM 0.4 mg/dL (0.6-1.3); GLUCOSE 145 mg/dL (74-106); MAGNESIUM - SERUM 1.8 mg/dL (1.8-2.4); PHOSPHOROUS 2.4 mg/dL (2.5-4.9); PROTEIN - SERUM 4.7 g/dL (6.4-8.2); SODIUM 139 mmol/L (136-145); eGFR NON AFRICAN AMERICAN > 90 mL/min (90-120)
[2016-09-28 05:36] LABS: CALC OSMOLALITY 280 mosm/kg (275-300); UREA NITROGEN 13 mg/dL (7-18)
[2016-09-28 05:37] LABS: POTASSIUM - SERUM 2.9 mmol/L (3.5-5.1)
--- NOTE | 2016-09-28 05:45 | NUR ---
0545: K+ reviewed and KCL rider started per electrolyte protocol at this time.
--- NOTE | 2016-09-28 06:00 | NUR ---
0600: Family here and update provided at this time.
--- NOTE | 2016-09-28 07:23 | NUR ---
LYING IN BED AT THIS TIME, ON VENT AND IS SEDATED. RECIEVED REPORT. NOTED PTS RIGHT HAND FROM HEART CATH YESTERDAY APPEARS DISCOLORED WITH POOR CAPILLARY REFILL, COOL TO TOUCH, WITH EDEMA. ABLE TO VERIFY RADIAL PULSE VIA DOPPLER. DR QUACH CALLED TO NOTIFY AT THIS TIME, NOTED NO NEW ORDER BUT TO KEEP WARM BLANKETS TO RIGHT HAND. NO ACUTE DISTRESS NOTED. PT NOTED TO MOVE ARMS AND LEGS DURING ASSESSMENT PROPIFOL TITRATED FOR BOB OF 3. WILL CONTINUE PLAN OF CARE.
--- NOTE | 2016-09-28 09:38 | NUR ---
UP IN BED AT THIS TIME. NO ACUTE DISTRESS NOTED. PT NOTED TO MOVE ARMS AND LEGS AT TIMES. DOES FOLLOW COMMANDS SUCH "OPEN MOUTH" DURING ORAL CARE. TURNED Q2H. WILL CONTINUE PLAN OF CARE.
--- NOTE | 2016-09-28 12:09 | NUR ---
FAMILY AT BEDSIDE. DR KENT GIVING UPDATE. NO ACUTE DISTRESS NOTED. WILL CONTINUE PLAN OF CARE.
--- NOTE | 2016-09-28 13:02 | NUR ---
INCONTINENT BOWEL MOVEMENT NOTED AT THIS TIME, SMALL WITH BRIGHT RED COLORED BLOOD. PT CLEANED UP VIA TOTAL ASSIST X [address] DENNIS OF STOOL. WILL CONTINUE PLAN OF CARE.
--- NOTE | 2016-09-28 13:26 | NUR ---
SPOKE WITH DR DENNIS AT THIS TIME FOR CLARIFICATION FOR SCHEDULED IV PROTONIX ONCE A DAY VERSUS IV CONTINUOUS PROTONIX, NOTED TO STOP DAILY PROTONIX AND CONTINUE IV CONTINUOUS PROTONIX. ALSO CONFIRMED ABSOLUTELY NO NGT OR OGT BY DR DENNIS FOR REASONS TO NOT IRRITATE BLEEDING SITE FROM YESTERDAY AND START NEW BLEED. ALSO NOTIFIED DR DENNIS AT THIS TIME THAT PT HAD SMALL AMOUNT OF BRIGHT RED BLOOD IN STOOL. NO FURTHER ORDERS. WILL CONTINUE PLAN OF CARE.
--- NOTE | 2016-09-28 14:42 | NUR ---
CONTINUED TO OFFER PT FOOD. NOTED 5 BITS HONEY THICK WATER AND 1 BITE OF MASHED POTATOES. PT THEN STATED SHE DID NOT WANT ANY MORE FOOD. WILL OFFER MORE FOOD/DRINKS IN A LITTLE WHILE.
--- NOTE | 2016-09-28 14:44 | NUR ---
NO ACUTE DISTRESS NOTED. VSS. PT TURNED Q2H. WILL CONTINUE PLAN OF CARE.
--- NOTE | 2016-09-28 16:48 | NUR ---
NO ACUTE DISTRESS NOTED. PT TURNED Q2H. VSS. ORAL SUCTIONING PROVIDED AT THIS TIME, NOTED SMALL AMOUNT THICK CLEAR SPUTUM NOTED. WILL CONTINUE PLAN OF CARE.
--- NOTE | 2016-09-28 18:29 | NUR ---
FAMILY AT BEDSIDE AT THIS TIME SPEAKING WITH DR DENNIS. NO ACUTE DISTRESS NOTED. VSS. WILL CONTINUE PLAN OF CARE.
--- NOTE | 2016-09-28 19:30 | NUR ---
RECEIVED PT FOR CARE. PT RESTING IN BED WITH EYES CLOSED. ASSESSMENT COMPLETED. VSS AT THIS TIME.
--- NOTE | 2016-09-28 20:30 | NUR ---
PT'S GRANDSON AT BEDSIDE. UPDATED ON PT'S STATUS.
--- NOTE | 2016-09-28 22:45 | NUR ---
PT RESTING COMFORTABLY. VSS.
[2016-09-29] VITALS (24 sets, daily range): BP systolic 91–140; BP diastolic 39–87; Ht 154.9 cm; Wt 73.1 kg
--- NOTE | 2016-09-29 01:55 | NUR ---
PT HAD COMPLETE BATH AND LINEN CHANGE. ORAL CARE GIVEN. TUBE TAMER CHANGED OUT DUE TO BEING SOILED. PT TOLERATED WELL. VSS.
[2016-09-29 04:22] LABS: BASOPHILS 0 % (0.0-2.0); EOSINOPHILS 0.1 % (0-7); HEMATOCRIT 25.9 % (36.0-48.0); HEMOGLOBIN 8.4 g/dL (12-16); IMMATURE GRANULOCYTES 0.3 % (0-5); LYMPHOCYTES 22.6 % (15-50); MCH 30.5 pg (26.0-34.0); MCHC 32.4 g/dL (31.0-37.0); MCV 94.2 fL (80.0-100.0); MEAN PLATELET VOLUME 11.4 fL (7.4-10.4); MONOCYTES 10.3 % (2-11); NEUTROPHILS 66.7 % (40-80); PLATELET COUNT 105 10x3/uL (130-400); RBC 2.75 10x6/uL (4.00-5.40); RDW 13.7 % (11.5-14.5)
[2016-09-29 04:25] LABS: WBC 7.3 10x3/uL (4.8-10.8)
[2016-09-29 04:35] LABS: CALC OSMOLALITY 283 mosm/kg (275-300); CALCIUM 7.6 mg/dL (8.5-10.1); CARBON DIOXIDE 21.7 mmol/L (21.0-32.0); CHLORIDE - SERUM 112 mmol/L (98-107); CREATININE - SERUM 0.5 mg/dL (0.6-1.3); GLUCOSE 167 mg/dL (74-106); MAGNESIUM - SERUM 1.3 mg/dL (1.8-2.4); POTASSIUM - SERUM 3.2 mmol/L (3.5-5.1); SODIUM 141 mmol/L (136-145); UREA NITROGEN 9 mg/dL (7-18); eGFR NON AFRICAN AMERICAN > 90 mL/min (90-120)
--- NOTE | 2016-09-29 06:17 | NUR ---
PT'S FAMILY AT BEDSIDE. UPDATED ON PT'S STATUS. FAMILY REQUESTING THAT THEY SPEAK WITH PHYSICIANS WHEN THEY ROUND.
--- NOTE | 2016-09-29 10:09 | OP ---
PATIENT NAME: HENRY BARRERA MEDICAL RECORD: [id number] :44 LOCATION:.[facility] D.2306 ADMISSION DATE:09/27/16 SURGEON: HERBIE QUACH MD DATE OF OPERATION: 09/27/2016 PROCEDURES: 1. PTCA stent RCA. 2. Left heart catheterization. 3. Selective coronary angiography. 4. Left ventriculogram. PROCEDURE IN DETAIL: After informed consent was obtained and after detailed explanation of risks, benefits as well as alternative therapies, the patient elected to proceed with angiogram and angioplasty. The right femoral area was prepped and draped in normal sterile fashion. The right femoral artery was cannulated via modified Seldinger technique with placement of a 7-Kosovan sheath. All catheters exchanged through this sheath. FINDINGS: Left ventriculogram was performed in standard 30-degree CARDENAS view reveals preserved cardiac wall motion, ejection fraction of 55%. SELECTIVE CORONARY ANGIOGRAPHY: 1. Left main showed no significant angiographic disease. 2. Left anterior descending has previously placed stents, these are widely patent; however, there is 70% to 80% stenosis proximally in the LAD. 3. Left circumflex has previously placed stents; these are widely patent with moderate irregularities elsewise. 4. The right coronary has 70% to 80% stenosis in the mid vessel. PTCA STENT OF THE RIGHT CORONARY: The stent used is a 2.5 x 22 mm Integrity. Result was 0% residual stenosis. OVERALL IMPRESSION: Successful percutaneous transluminal coronary angioplasty stent of the right coronary artery going from 70% to 80% initial stenosis to 0% residual. TRANSINT:[id number] Voice Confirmation ID: [id number] DOCUMENT ID: [id number] HERBIE QUACH MD at 1009 CC: [id number] DICTATION DATE: 09/27/16 1117 BOOKBINDING MACHINE OPERATOR: 09/27/16 1751 ADM IN [id number] [place] [address]
--- NOTE | 2016-09-29 10:09 | DS ---
PATIENT:HENRY REILLY :44 MEDICAL RECORD: [id number] DISCHARGE SUMMARY ADMISSION DATE: 09/27/16 DISCHARGE DATE: DISCHARGE DIAGNOSES: 1. Angina. 2. Percutaneous transluminal coronary angioplasty stent right coronary artery this admission. 3. Hypertension. 4. Hyperlipidemia. 5. Premature ventricular contractions -- dysrhythmia. HOSPITAL COURSE: Mrs. Reilly presents with unstable anginal symptomatology, found to have critical disease of the RCA and LAD, underwent successful PTCA stent of the RCA, was discharged home with no change in her medications as she is already on aspirin and Plavix. We will follow up in 3 days for PTCA stent of the LAD. TRANSINT:[id number] Voice Confirmation ID: [id number] DOCUMENT ID: [id number] HERBIE QUACH MD at 1009 CC: [id number] DICTATION DATE: 09/27/16 1117 COFFEE SOMMELIER: 09/28/16 0153 ADM IN [facility] [address] [place] [address]
--- NOTE | 2016-09-29 14:01 | NUR ---
Patient Name: HENRY BARRERA Admission Status: ER Accout number: [id number] Admission Date: 09-27-2016 : 1940 Admission Diagnosis: Attending: SANDRA Current LOS: 2 Anticipated DC Date: Planned Disposition: Primary Insurance: MEDICARE A & B Discharge Planning Comments: CM ATTEMPTED TO ASSESS PT AT APPROXIMATELY 1245 HOURS, PT ON VENT AND NO FAMILY PRESENT IN ROOM OR IN ICU WAITING AREA. CM TO ATTEMPT TO ASSESS PT AND MEET WITH FAMILY AT A LATER DATE / TIME. Manuscript Reader: Chaitanya Tinoco
--- NOTE | 2016-09-29 19:45 | NUR ---
RECEIVED PT FOR CARE. PT RESTING IN BED WITH EYES CLOSED. ASSESSMENT COMPLETED.
--- NOTE | 2016-09-29 20:30 | NUR ---
PT'S GRANDSON AT BEDSIDE. UPDATED ON PT'S STATUS.
--- NOTE | 2016-09-29 23:00 | NUR ---
NO CHANGES NOTED.
[2016-09-30] VITALS (50 sets, daily range): BP systolic 83–129; BP diastolic 38–76
--- NOTE | 2016-09-30 01:15 | NUR ---
CONTINUE TO WEAN DIPRIVAN GTT. PT RESTING COMFORTABLY.
--- NOTE | 2016-09-30 03:05 | NUR ---
COMPLETE BATH AND LINEN CHANGE. ORAL CARE GIVEN. MCARTHUR CATH CARE DONE.
[2016-09-30 03:48] LABS: BASOPHILS 0 % (0.0-2.0); EOSINOPHILS 0 % (0-7); HEMATOCRIT 22.5 % (36.0-48.0); HEMOGLOBIN 7.6 g/dL (12-16); IMMATURE GRANULOCYTES 0.3 % (0-5); LYMPHOCYTES 12.4 % (15-50); MCH 31.9 pg (26.0-34.0); MCHC 33.8 g/dL (31.0-37.0); MCV 94.5 fL (80.0-100.0); MEAN PLATELET VOLUME 11.6 fL (7.4-10.4); MONOCYTES 7.3 % (2-11); PLATELET COUNT 103 10x3/uL (130-400); RBC 2.38 10x6/uL (4.00-5.40); RDW 13.9 % (11.5-14.5)
[2016-09-30 03:52] LABS: WBC 9.9 10x3/uL (4.8-10.8)
[2016-09-30 03:58] LABS: APTT 36.2 SECONDS (22.8-39.4); INR 1.34 (0.85-1.17); PROTIME 16.5 SECONDS (11.6-15.0)
[2016-09-30 04:03] LABS: ALBUMIN 1.8 g/dL (3.4-5.0); ANION GAP 13.9 mmol/L (8-16); BILIRUBIN - DIRECT 0.25 mg/dL (0.00-0.30); BILIRUBIN - INDIRECT 0.37 mg/dL (0.00-1.00); BILIRUBIN - TOTAL 0.62 mg/dL (0.2-1.3); CALCIUM 7.5 mg/dL (8.5-10.1); CARBON DIOXIDE 17.6 mmol/L (21.0-32.0); CREATININE - SERUM 0.8 mg/dL (0.6-1.3); MAGNESIUM - SERUM 1.9 mg/dL (1.8-2.4); PHOSPHOROUS 2.1 mg/dL (2.5-4.9); POTASSIUM - SERUM 3.5 mmol/L (3.5-5.1); PROTEIN - SERUM 4.5 g/dL (6.4-8.2)
--- NOTE | 2016-09-30 06:00 | NUR ---
PT'S FAMILY AT BEDSIDE. UPDATED ON PT'S STATUS.
--- NOTE | 2016-09-30 07:15 | NUR ---
asessment complete see flowsheet, vss, repositioned to right side withpillow propped to back and heels floated, oral care and suction completed
--- NOTE | 2016-09-30 08:46 | NUR ---
AM MEDS GIVEN PER ORDER AND PROTOCAL
--- NOTE | 2016-09-30 10:14 | NUR ---
K+ LEVEL DRAWN FROM CVL PER PROTOCAL FOR REPEAT EVAL
--- NOTE | 2016-09-30 10:19 | NUR ---
CT WITH [facility]IMLE[facility] PL[facility] BY DR TADEO WITHOUT DIFFICULTY, CXR ORDERED, RIGHT LATERAL SIDE, GAUZE DRESSING APPLIED, PLACED ON 20 CM SUCTION
--- NOTE | 2016-09-30 11:00 | NUR ---
no acute change from previous assessment, see flowsheet, vss, repositioned to back with heels floated
--- NOTE | 2016-09-30 12:02 | NUR ---
FAMILY CALLED TO BEDSIDE, DISCUSSED BRADYCARDIA AND HYPOTENTION, STATED TO CONTINUE WITH MEDICATION FOR NOW, AND WOULD LIKE TO SPEAK WIHT DR. TADEO RE; PROGNOSIS AND CODE STATUS ON HIS ARRIVAL
--- NOTE | 2016-09-30 12:16 | NUR ---
DR TADEO AT BEDSIDE, DISCUSSION RE POC AND PROGNOSIS
--- NOTE | 2016-09-30 12:28 | NUR ---
MAG 2GM IVPB INITIATED PER ORDER
--- NOTE | 2016-09-30 14:00 | NUR ---
sbp 77, levaphed initiated at 2 mcg,
--- NOTE | 2016-09-30 14:15 | NUR ---
sbp 80 with map of 59, levaphed titrated to 4mg
--- NOTE | 2016-09-30 15:00 | NUR ---
family at bedside, status updated, voices no needs at this time, repositioned to left side with pillow propped to back and heels floated, oral care and suction completed,
--- NOTE | 2016-09-30 15:13 | NUR ---
Patient Name: HENRY BARRERA Admission Status: ER Accout number: [id number] Admission Date: 09-27-2016 : 1940 Admission Diagnosis:ANGINA PECTORIS, UNSPECIFIED Attending: SANDRA Current LOS: 3 Anticipated DC Date: Planned Disposition: Primary Insurance: MEDICARE A & B Discharge Planning Comments: CM MET WITH DAUGHTERS TURNER ALCARAZ AND ALEX ALEXANDER REGARDING D/C NEEDS AND PLANS. PATIENT HAS NO STEPS OR STAIRS TO ENTER HOME. DAUGHTERS STATED FAMILY LIVES BY EACH OTHER AND THEY HELP EACH OTHER OUT WHEN NEEDED. PATIENT WAS INDEPENDENT AT HOME AND DOES NOT HAVE ANY DME. PATIENTS PCP IS DR. WILKINS AND USES [facility]. FAMILY IS DECIDING WHAT TO DO AT DISCHARGE. CM WILL CONTINUE TO FOLLOW PATIENT WITH D/C NEEDS AND PLANS. DO NOT CALL SPOUSE WITH INFO-GETS UPSET PER FAMILY. PCP DR. WILKINS [facility]- [phone] TURNER WHITEHEAD (DAUGHTER) [phone] ALEX ALEXANDER (DAUGHTER)- [phone] Horticulture Worker: Vanessa Duffy Is the patient Alert and Oriented? No 0 * How many steps to enter\exit or inside your home? 0 0 * PCP DR. WILKINS 0 * Pharmacy [phone] 0 * Preadmission Environment Home Alone 0 * ADLs Independent 0 * Equipment None 0 * List name and contact numbers for known caregivers / representatives who currently or will assist patient after discharge: TURNER ALCARAZ (DAUGHTER) [phone] ALEX ARELISROBB (DAUGHTER) [phone] 0 * Community resources currently utilized None 0 * Additional services required to return to the preadmission environment? Yes 0 * Can the patient safely return to the preadmission environment? Yes 0 * Has this patient been hospitalized within the prior 30 days at any hospital? No 0 Grand Total: 0
--- NOTE | 2016-09-30 19:45 | NUR ---
REPORT RECEIVED AND CARE ASSUMED. INITIAL SHIFT ASSESSMENT COMPLETED SEE FLOWSHEET. PT BEING MONITORED PER STANDARD ICU PROTOCOL WITH ALL ALARMS SET AND VERIFIED. ALL LINES, TUBINGS AND IVF ARE PROPERLY DATED AND LABELED AND CURRENT. PT BEING SUPPORTED VIA MECHANICAL VENTILATION WITH DIPROVAN FOR SEDATION. CURRENTLY ON LEVOPHED TO MAINTAIN ADEQUATE PERFUSION. TITRATING TO EFFECTIVENESS. RIGHT CT WITH HEMLICH VALVE PRESENT TO SEALED DRAINAGE SYSTEM. SEROUS DRAINAGE SMALL AMOUNT, 20CM SUCTION. NO AIR LEAK DETECTED. SEE FLOWSHEET FOR COMPLETE ASSESSMENT. BED IS IN LOW POSITION AND IS VISIBLE FROM NURSES STATION.
--- NOTE | 2016-09-30 20:00 | NUR ---
DR. TADEO HERE DID DISCUSS THE PRESENCE OF CARDIAC ECTOPY PT HAVING PVC'S AND COUPLETS. HE STATED NOT NEEDED TO RESUME CARDIZEM GTT AT THIS TIME. FAMILY PRESENT AT BEDSIDE AND NOTIFIED OF THIS.
--- NOTE | 2016-09-30 21:00 | NUR ---
FAMILY AT BEDSIDE UPDATE GIVEN
--- NOTE | 2016-09-30 21:55 | NUR ---
HS MEDS GIVEN WITHOUT DIFFICULTY. PT C/O BACK ACHE WHEN REPOSITIONING HER UP IN BED FOR ADMINISTRATION OF MEDICATION. REQUESTED PAIN MEDICINE. BUPRENEX GIVEN DOCUMENTED ON SEP.
--- NOTE | 2016-09-30 23:00 | NUR ---
SHIFT REASSESSMENT COMPLETED NO SIGNIFICANT CHANGES. PT IS BEING TITRATED DOWN ON LEVOPHED SEE IV DRIP SHEET FOR CHANGES.
--- NOTE | 2016-09-30 23:10 | NUR ---
LEVOPHED OFF AT THIS TIME
[2016-10-01] VITALS (18 sets, daily range): BP systolic 87–126; BP diastolic 42–61
--- NOTE | 2016-10-01 01:00 | NUR ---
COMPLETE BED BATH GIVEN LINENS CHANGED, MCARTHUR CARE DONE CVL DRESSING CHANGED USING STERILE TECHNIQUE. PT TOLERATED WELL
--- NOTE | 2016-10-01 03:00 | NUR ---
SHIFT REASSESMENT COMPLETED WITH NO SIGNIFICANT CHANGES, SEE FLOWSHEET
[2016-10-01 04:37] LABS: BASOPHILS 0 % (0.0-2.0); EOSINOPHILS 0.2 % (0-7); HEMATOCRIT 20.4 % (36.0-48.0); IMMATURE GRANULOCYTES 0.5 % (0-5); LYMPHOCYTES 14.7 % (15-50); MCH 31.5 pg (26.0-34.0); MCHC 33.8 g/dL (31.0-37.0); MCV 93.2 fL (80.0-100.0); MEAN PLATELET VOLUME 11.8 fL (7.4-10.4); MONOCYTES 6.6 % (2-11); PLATELET COUNT 108 10x3/uL (130-400); RBC 2.19 10x6/uL (4.00-5.40); RDW 14.2 % (11.5-14.5); WBC 6.5 10x3/uL (4.8-10.8)
[2016-10-01 04:38] LABS: HEMOGLOBIN 6.9 g/dL (12-16)
--- NOTE | 2016-10-01 04:45 | NUR ---
LAB REVIEWED NOTE HCT HGB TRENDING DOWN BUT PHYSICIANS AWARE. NO TREATMENT NEEDED BASED ON PT'S WISHES. PT REFUSES BLOOD TRANSFUSIONS
[2016-10-01 05:16] LABS: CALC OSMOLALITY 282 mosm/kg (275-300); CALCIUM 7.4 mg/dL (8.5-10.1); CARBON DIOXIDE 18.8 mmol/L (21.0-32.0); CHLORIDE - SERUM 113 mmol/L (98-107); CREATININE - SERUM 0.7 mg/dL (0.6-1.3); GLUCOSE 152 mg/dL (74-106); MAGNESIUM - SERUM 2.2 mg/dL (1.8-2.4); SODIUM 140 mmol/L (136-145); UREA NITROGEN 16 mg/dL (7-18); eGFR NON AFRICAN AMERICAN 87 mL/min (90-120)
[2016-10-01 05:18] LABS: TROPONIN-I 0.301 ng/mL (0.000-0.060)
--- NOTE | 2016-10-01 06:30 | NUR ---
NO VISITORS AT THIS TIME
--- NOTE | 2016-10-01 07:30 | NUR ---
REC'D REPORT AND RRESUMED CARE, ETT TO VENTILATION AND SECURED, VSS, ASSESSMENT COMPLETE, SEE FLOWSHEET, REPOSITIONED UP AND TO BACK WITH HEELS FLOATED, ORAL CARE AND SUCTION COMPLETED
--- NOTE | 2016-10-01 08:30 | NUR ---
FAMILY AT BEDSIDE, DECISION MADE FOR FULL DNR BY DAUGHTER TURNER, WILL REMOVE ETT AFTER SPEAKING WITH DR TADEO
--- NOTE | 2016-10-01 09:00 | NUR ---
FAMILY AT BEDSIDE, STATUS UPDATED VOICES NO NEEDS AT THIS TIME
--- NOTE | 2016-10-01 11:00 | NUR ---
NO ACUTE CHANGE FROM PREVIOUS ASSESSMENT. CONTINUES ON VENT, AWAITING EXTUBATION FOR COMFORT CARE
--- NOTE | 2016-10-01 11:55 | NUR ---
10 MG MORPHINE IVP PRE EXTUBATION PER ORDER
--- NOTE | 2016-10-01 12:30 | NUR ---
EXTUBATED, ORAL CARE AND SUCTION COMPLETED, MOVED TO 2316 VIA BED PER FAMILY REQUEST, PORTABLE, MONITOR IN PLACE, VSS, FAMILY AT BEDSIDE, NO NEEDS AT THIS TIME
--- NOTE | 2016-10-01 13:10 | NUR ---
MORPHINE CHART CALCULATOR, INTIATED PER ORDER AND PROTOCAL AT 1 MG/HR
--- NOTE | 2016-10-01 15:00 | NUR ---
FAMILY AT BEDSIDE, NO REQUEST AT THIS TIME
--- NOTE | 2016-10-01 17:00 | NUR ---
HOSPICE EVAL INITIATED, PC TO [facility] PER FAMILY REQUEST
--- NOTE | 2016-10-01 18:30 | NUR ---
REPORT CALL TO MARTA ROBERTSON RN AT RECEIVING FACILITY, [facility], [facility], EMS CALLED FOR TRANSPORT
--- NOTE | 2016-10-01 19:50 | NUR ---
AMBULANCE HERE FOR PT,
--- NOTE | 2016-10-10 13:49 | CN ---
PATIENT NAME:HENRY BARRERA MEDICAL RECORD: [id number] : 44 LOCATION:[facility].2306 ADMIT DATE: 09/27/16 ACCOUNT: [id number] CONSULTING PHYSICIAN: ENDY KENT MD REFERRING PHYSICIAN: HERBIE BURLESON MD DATE OF CONSULTATION: 09/28/2016 CONSULT REQUESTING PHYSICIAN: Dr. Herbie Burleson. REASON FOR CONSULTATION: Vent management. HISTORY OF PRESENT ILLNESS: Ms. Barrera is a 76-year-old female, who underwent cardiac catheterization yesterday and the patient was ready to discharge, she had bright red blood emesis. Dr. Villa was consulted. The patient was orally intubated to protect her airway and to proceed with the EGD. The patient also was seen by interventional radiology, Dr. Montero who did the left gastric artery embolization. Now, the patient is stable on mechanical ventilation. The history was taken mainly by talking to the nursing staff and reviewing the patient's note. PAST MEDICAL HISTORY: 1. Hypertension. 2. Coronary artery disease. 3. History of cardiac murmur. 4. A tortuous carotid artery. 5. She has head and neck cancer. 6. She has a history of non-Hodgkin lymphoma. PAST SURGICAL HISTORY: 1. She has foot and arm surgery, T&A, hysterectomy. 2. Ct fundoplication. 3. Tubal ligation. 4. She has 6 lymph node removed from the neck. 5. Now, she is status post cardiac catheterization and stent placement. She is status post embolization of the left gastric artery. ALLERGIES: SHE IS ALLERGIC TO FENTANYL, PENICILLIN, SULFA AND FLAGYL. MEDICATIONS: On Beyond the Box was reviewed. PERSONAL AND SOCIAL HISTORY: The patient has never smoked. She is a nondrinker. FAMILY HISTORY: Significant for cardiovascular diseases. PHYSICAL EXAMINATION: GENERAL: Now, the patient is lying comfortably in bed. She is in mild distress, orally intubated. NECK: Supple, no JVD. HEENT: Pupils are equal, round, and reactive to light. Conjunctivae pink, sclerae nonicteric NECK: Supple, no JVD. CHEST: Chest excursion is minimal on both sides. There is no wheeze, no rales. HEART: Regular rhythm, regular normal sound, no murmur. ABDOMEN: Soft. Bowel sounds present. No hepatosplenomegaly. CONSULT REPORT [id number] HENRY BARRERA RECTAL: Deferred. EXTREMITIES: No cyanosis, no clubbing, no pedal edema. SKIN: Warm, normal turgor. CENTRAL NERVOUS SYSTEM: The patient is orally intubated and sedated. LABORATORY DATA: CBC: The WBC is 4.7, hemoglobin 9, hematocrit 27.2 and the platelet count 104. Chemistry: Sodium 139, potassium 2.9, BUN is 13, creatinine 0.4, glucose 145. ABG this morning, pH of 7.45, pCO2 is 28.8, pO2 is 99. This was done on 50% oxygen assist control, tidal volume of 550. CHEST RADIOGRAPH: The ET tube is in good position. There is no infiltrate. IMPRESSION: 1. Acute respiratory failure, post-procedure intubated for airway protection as well as hypoxia. 2. Status post cardiac catheterization RCA stented. 3. Status post esophagogastroduodenoscopy. 4. Status post embolization, left gastric artery by Dr. Montero. 5. Upper gastrointestinal bleed. 6. Anemia secondary to upper gastrointestinal bleed. 7. Coronary artery disease, status post stent placement of RCA. 8. Hypokalemia. RECOMMENDATION: 1. Replace the potassium. We will continue the mechanical ventilation, adjust the settings. 2. Continue Protonix. 3. Compression stockings for DVT prophylaxis. 4. Follow labs and chest radiograph. Discussed with family in length. I will keep her intubated today. If stable tomorrow, will try to wean her. Dr. Burleson, once again thanks for involving me in the care of Ms. Barrera. TRANSINT:[id number] Voice Confirmation ID: [id number] DOCUMENT ID: [id number] ENDY KENT MD at 1349 CC: HERBIE BURLESON MD [id number] DICTATION DATE: 09/28/16 1215 MAINTENANCE ASSISTANT: 09/28/162036 DIS IN 10/01/16 [id number] [place] [address]
== END 2016-10-01 19:50 | disposition home health service (06) | DRG 248 ==
LOC: D.ER 14:15 → OBSVTIME 16:27 → D.M2 16:27 → D.ICU 16:27
PROVIDERS: Emergency Medicine; Internal Medicine Gastroenterology; Internal Medicine Pulmonary Disease; Radiology Vascular & Interventional Radiology; ADMIT Internal Medicine Interventional Cardiology
PROC: B2111ZZ Fluoroscopy of Multiple Coronary Arteries using Low Osmolar Contrast (ICD-10-PCS; 2016-09-27)
PROC: B2151ZZ Fluoroscopy of Left Heart using Low Osmolar Contrast (ICD-10-PCS; 2016-09-27)
PROC: 0D9670Z Drainage of Stomach with Drainage Device, Via Natural or Artificial Opening (ICD-10-PCS; 2016-09-27)
PROC: 0W3P8ZZ Control Bleeding in Gastrointestinal Tract, Via Natural or Artificial Opening Endoscopic (ICD-10-PCS; 2016-09-27)
PROC: 04L23DZ Occlusion of Gastric Artery with Intraluminal Device, Percutaneous Approach (ICD-10-PCS; 2016-09-27)
PROC: 02H633Z Insertion of Infusion Device into Right Atrium, Percutaneous Approach (ICD-10-PCS; 2016-09-27)
PROC: B244ZZZ Ultrasonography of Right Heart (ICD-10-PCS; 2016-09-27)
PROC: 0BH17EZ Insertion of Endotracheal Airway into Trachea, Via Natural or Artificial Opening (ICD-10-PCS; 2016-09-27)
PROC: 5A1945Z Respiratory Ventilation, 24-96 Consecutive Hours (ICD-10-PCS; 2016-09-27)
PROC: 02703DZ Dilation of Coronary Artery, One Artery with Intraluminal Device, Percutaneous Approach (ICD-10-PCS; principal; 2016-09-27 11:00)
PROC: 4A023N7 Measurement of Cardiac Sampling and Pressure, Left Heart, Percutaneous Approach (ICD-10-PCS; 2016-09-27 11:00)
DX: I25.119 Atherosclerotic heart disease of native coronary artery with unspecified angina pectoris (principal); J95.821 Acute postprocedural respiratory failure; K29.71 Gastritis, unspecified, with bleeding; K29.81 Duodenitis with bleeding; J69.0 Pneumonitis due to inhalation of food and vomit; D62 Acute posthemorrhagic anemia; E87.2 Acidosis; Y83.8 Other surgical procedures as the cause of abnormal reaction of the patient, or of later complication, without mention of misadventure at the time of the procedure; I49.3 Ventricular premature depolarization; E87.6 Hypokalemia; K22.8 Other specified diseases of esophagus; Z78.1 Physical restraint status; I10 Essential (primary) hypertension; E78.5 Hyperlipidemia, unspecified; Z95.5 Presence of coronary angioplasty implant and graft; D69.6 Thrombocytopenia, unspecified